=== PATIENT | male | born 1985 | race Caucasian/White ===

== ENCOUNTER 2017-07-16 17:29 | Emergency (ER) | payer SELFPAY ==
[~2017-07-16] VITALS: Ht 172.7 cm; Wt 73.0 kg
[~2017-07-16 17:29] MED LIST: FOLI1TAB6 PO; NICO21DI25 T-DERMAL; PANT40TA3 PO; THERM PO; THIA100 PO
[2017-07-16 17:57] VITALS: BP 146/65; PULSE 92; RESP 18; TEMP 98.4; O2SAT 97
--- NOTE | 2017-07-16 18:03 | PD ---
HPI Chief Complaint: overdose Time Seen by Provider: 17:54 Travel History International Travel<30 days: No Contact w/Intl Traveler<30days: No Traveled to known affect area: No History of Present Illness HPI 32-year-old male brought in by ambulance for possible heroin overdose. Patient admits to using IV Dilaudid 8 mg today. He states he was tired prior to using, then became increasingly tired after injecting into his left antecubital fossa. Patient's friends who were present at the time. Possible overdose, so 911 was called. Upon EMS arrival, the patient was drowsy yet easily arousable. He was transported here for further evaluation. On arrival the patient is awake and alert. He denies any physical complaints. States that the overdose was unintentional. Denies suicidal or homicidal ideation. PFSH Past Medical History Asthma: Yes ( A SMALL CHILD) Blood Disorders: No Anxiety: Yes Depression: Yes Cancer: No Diabetes: No Diminished Hearing: No Psychiatric: Yes (BIPOLAR) Respiratory: No Immunizations Current: No Past Surgical History Other Surgery: No Social History Alcohol Use: No Tobacco Use: Yes (PPD) Substance Use: No Allergies-Medications (Allergen,Severity, Reaction): Coded Allergies: No Known Allergies (Verified Adverse Reaction, Unknown, 07/16/17) Reported Meds & Prescriptions Reported Meds & Active Scripts Active Review of Systems Except as stated in HPI: all other systems reviewed are Neg Physical Exam Narrative GENERAL: Well-developed, well-nourished, awake, alert, no apparent distress. SKIN: Focused skin assessment warm/dry. Tract jacob on bilateral upper extremities without warmth, without erythema. HEAD: Atraumatic. Normocephalic. EYES: Pupils equal and round. No scleral icterus. No injection or drainage. ENT: Mucous membranes pink and moist. NECK: Trachea midline. No JVD. CARDIOVASCULAR: Regular rate and rhythm. No murmur appreciated. RESPIRATORY: No accessory muscle use. Clear to auscultation. Breath sounds equal bilaterally. GASTROINTESTINAL: Abdomen soft, non-tender, nondistended. MUSCULOSKELETAL: No obvious deformities. No clubbing. No cyanosis. No edema. NEUROLOGICAL: Awake and alert. No obvious cranial nerve deficits. Motor grossly within normal limits. Normal speech. PSYCHIATRIC: Appropriate mood and affect; insight and judgment normal. Data Data Last Documented VS Vital Signs Date Time Temp Pulse Resp B/P (MAP) Pulse Ox O2 Delivery O2 Flow Rate FiO2 07/16/17 18:03 82 Room Air 07/16/17 17:57 98.4 18 146/65 (92) 97 MDM Medical Decision Making Medical Screen Exam Complete: Yes Emergency Medical Condition: Yes Medical Record Reviewed: Yes Differential Diagnosis Unintentional opioid overdose Narrative Course 6:30 PM: Patient reports that he wants to go home. He is called his mom who will come pick him up. Diagnosis Primary Impression: Opioid overdose Qualified Codes: T40.2X1A - Poisoning by other opioids, accidental ( unintentional), initial encounter Referrals: Primary Care Physician 2 days Additional Instructions: Follow-up with a primary care physician this week. Return to the emergency department for worsening symptoms or any other concerns. Disposition: 01 DISCHARGE HOME Condition: Stable Satnam Easley MD Jul 16, 2017 18:03
== END 2017-07-16 19:27 | disposition home or self-care (01) ==
LOC: NEPD 17:29
DX: T40.2X1A Poisoning by other opioids, accidental (unintentional), initial encounter (principal); J45.909 Unspecified asthma, uncomplicated; F41.9 Anxiety disorder, unspecified; F31.9 Bipolar disorder, unspecified; F17.200 Nicotine dependence, unspecified, uncomplicated
CPT/HCPCS: 99283